=== PATIENT | female | born 1990 | race Caucasian/White ===

== ENCOUNTER 2018-10-31 14:51 | Emergency (ER) | payer SELFPAY ==
[~2018-10-31] VITALS: Ht 162.6 cm; Wt 63.5 kg
[2018-10-31 15:00] VITALS: BP 103/56
--- NOTE | 2018-10-31 15:00 | NUR ---
[place] [facility] 61 [place]/congestion/sick x5d" PT IS AAOX3, NOT IN RESPIRATORY DISTRESS, V/S STABLE, KEPT RESTED AND COMFORTABLE, WILL CONTINUE TO MONITOR.
--- NOTE | 2018-10-31 16:16 | NUR ---
PT SEEN AND EXAMINED BY KELLY SWEENEY.
--- NOTE | 2018-10-31 16:20 | NUR ---
URINAL GIVNE UNABLE TO PROVIDE URINE SPECIMEN THIS TIME.
--- NOTE | 2018-10-31 16:24 | NUR ---
LITERACY TUTOR AT BEDSIDE FOR XRAY.
--- NOTE | 2018-10-31 16:53 | NUR ---
URINE SPECIMEN COLLECTED AND SENT TO LAB.
[2018-10-31 16:54] LABS: BASOPHILS # (AUTO) 0.2 /CMM (0.0-0.2); BASOPHILS % (AUTO) 3.2 % (0.0-2.0); EOSINOPHILS % (AUTO) 2.9 % (0.0-6.0); HEMATOCRIT 38 % (33-45); HEMOGLOBIN 12.5 g/dL (11.5-14.8); LYMPHOCYTES # (AUTO) 1.1 /CMM (0.8-4.8); LYMPHOCYTES % (AUTO) 20.9 % (20.0-44.0); MEAN CORPUSCULAR HGB CONC 33 g/dl (31.0-36.0); MEAN CORPUSCULAR VOLUME 83 fL (82-100); MONOCYTES # (AUTO) 0.6 /CMM (0.1-1.30); MONOCYTES % (AUTO) 11.6 % (2.0-12.0); NEUTROPHILS # (AUTO) 3.3 /CMM (1.8-8.9); NEUTROPHILS % (AUTO) 61.4 % (43.0-81.0); PLATELET COUNT (AUTO) 224 /CMM (150-450); WHITE BLOOD COUNT (AUTO) 5.3 K/uL (4.3-11.0)
[2018-10-31 17:09] LABS: ALBUMIN 3.5 g/dL (3.4-5.0); BILIRUBIN,DIRECT 0.1 mg/dL (0.0-0.2); BILIRUBIN,TOTAL 0.2 mg/dL (0.2-1.0); CREATININE 0.7 mg/dL (0.6-1.3); POTASSIUM 4.1 mmol/L (3.5-5.1); TOTAL PROTEIN, SERUM 6.9 g/dL (6.4-8.2)
[2018-10-31 17:13] LABS: ALCOHOL, BLOOD < 3 mg/dL (0-0)
[2018-10-31 17:15] LABS: ACETAMINOPHEN < 2 ug/ml (10-30); SALICYLATE 1.3 mg/dL (2.8-20.0)
[2018-10-31 17:16] LABS: APPEARANCE,URINE Cloudy (CLEAR); BILIRUBIN,URINE SMALL (NEGATIVE); BLOOD, URINE Trace-intact Ery/uL (NEGATIVE); COLOR,URINE Yellow (YELLOW); KETONES,URINE Negative (NEGATIVE); LEUKOCYTE ESTERASE ,URINE Negative (NEGATIVE); NITRITE, URINE Positive (NEGATIVE); PH,URINE 5.5 (5.0-8.0); PROTEIN,URINE Trace mg/dl (NEGATIVE); UGLUCOSE Negative (NEGATIVE); UROBILINOGEN,URINE 0.2 EU/dL (0.2)
[2018-10-31 18:06] LABS: BACTERIA,URINE 3+ /HPF (None Seen); SQUAMOUS EPITHELIAL CELL,UR Few /HPF (None Seen)
[2018-10-31] MEDS ORDERED: CEFTRIAXONE 1 G VIAL IM ONE (18:30)
[2018-10-31] MEDS ORDERED: LIDOCAINE /MPF 1% VIAL 5 ML VIAL ONE (18:58)
[2018-10-31] MEDS ORDERED: CEFTRIAXONE 1 G VIAL ONE (18:59)
[2018-10-31 20:37] LABS: EOSINOPHILS % (MANUAL) 1 % (0-4); LYMPHOCYTES % (MANUAL) 33 % (16-48); MONOCYTES % (MANUAL) 2 % (0-11.0); NEUTROPHILS % (MANUAL) 64 (42-76)
== END 2018-10-31 22:23 | disposition home or self-care (01) ==
LOC: ER 14:56
DX: R40.4 Transient alteration of awareness (principal); F19.10 Other psychoactive substance abuse, uncomplicated; F16.10 Hallucinogen abuse, uncomplicated; F15.10 Other stimulant abuse, uncomplicated; N39.0 Urinary tract infection, site not specified; Z59.0 Homelessness; Z91.14 Patient's other noncompliance with medication regimen
CPT/HCPCS: 36415; 71045; 80048; 80076; 80305; 80307; 80329; 81001; 84702; 85025; 87077; 87086; 87186; 96372; 99284; G0480; J0696; J3490; 81000-TC